=== PATIENT | male | born 1980 | race Caucasian/White ===

== ENCOUNTER 2018-04-10 01:15 | Observation (INO) ==
[2018-04-10] MEDS ORDERED: Acetaminophen 325 MG Tablet PO ONE (01:31)
[2018-04-10] MEDS ORDERED: Azithromycin 250 MG Tablet PO ONE (01:31)
--- NOTE | 2018-04-10 01:43 | ED ---
HPI General Chief complaint: Urogenital-Male Stated complaint: Medical Time Seen by Provider: 04/10/18 01:27 Source: patient Mode of arrival: ambulatory Limitations: no limitations History of Present Illness HPI narrative: 37-year-old male here for evaluation of penile discharge and gross hematuria with severe dysuria. Symptoms started yesterday. He was diaphoretic, tachycardic, and febrile in triage and was brought straight back to her room meeting sepsis criteria. Patient states that he had sexual intercourse 2 days ago, but is unsure if his sexual partner is having sex with other people. States his symptoms started yesterday. He is having lower abdominal pain as well which is moderate, described as burning, constant, dysuria is severe and constant. He denies history of abdominal surgeries. He has had a slight nonproductive cough for the last couple of days as well as several episodes of loose/brown diarrhea. No vomiting. He admits to using tobacco, alcohol, and methamphetamines by way of smoking it. Admits to IV drug use, however has not used IV drugs in over 1 year. He denies inserting anything into his urethra. Chart was reviewed and shows that the patient has been here in the past for suicide attempt by hanging/asphyxiation. Patient denies having suicidal or homicidal ideations today. Related Data Home Medications Medication Instructions Recorded Confirmed No Known Home Medications 04/10/18 04/10/18 Allergies Allergy/AdvReac Type Severity Reaction Status Date / Time No Known Allergies Allergy Verified 04/10/18 01:21 Review of Systems ROS: all other systems reviewed are negative [facility] Medical History Medical History Patient denies medical problems (Acute) Surgical History Surgical History No history of previous surgery (Acute) Social History Social History Substance History: Active Abuse Smoking Status: Current every day smoker Tobacco Type: Cigarettes How Often Do You Have a Drink Containing Alcohol: Never Recent Travel in [facility] within the Last 8 Weeks: No Recent Out of Country Travel within the Last 8 Weeks: No Substance Abuse Detail Methamphetamine: Substance Use Status: Active Immunization History Tetanus Immunization: >5 Years Exam Narrative Exam Narrative: GENERAL: Well-developed, well-nourished, shivering, flat affect , poor eye contact SKIN: Focused skin assessment warm/dry. HEAD: Atraumatic. Normocephalic. EYES: Pupils equal and round. No scleral icterus. No injection or drainage. ENT: No nasal bleeding or discharge. Mucous membranes pink and dry. NECK: Trachea midline. No JVD. No nuchal rigidity. CARDIOVASCULAR: Tachycardic, rate 95. No murmur. RESPIRATORY: No accessory muscle use. Clear to auscultation. Breath sounds equal bilaterally. GASTROINTESTINAL: Abdomen soft, nondistended. Mild suprapubic tenderness without peritoneal signs. Normal bowel sounds. Rest of abdomen is soft and nontender. No hernias. : Blood at the meatus with purulent discharge as well. The rest of his exam is within normal limits, without rashes. No testicular swelling, masses, or tenderness. MUSCULOSKELETAL: No obvious deformities. No clubbing. No cyanosis. No edema. NEUROLOGICAL: Awake and alert. No obvious cranial nerve deficits. Motor grossly within normal limits. Normal speech. PSYCHIATRIC: Flat affect, poor eye contact, depressed mood. Course Initial Documented Vital Signs Temperature 102.7 F H 04/10/18 01:18 Pulse Rate 103 H 04/10/18 01:18 Respiratory Rate 20 04/10/18 01:18 Blood Pressure 117/68 04/10/18 01:18 Pulse Oximetry 97 04/10/18 01:18 Last Documented Vital Signs Temperature 99.1 F 04/10/18 03:26 Pulse Rate 63 04/10/18 04:47 Respiratory Rate 16 04/10/18 04:47 Blood Pressure 114/66 04/10/18 04:47 Pulse Oximetry 100 04/10/18 04:47 Medical Decision Making MDM Narrative Medical decision making narrative: Vital signs reviewed and show tachycardia with fever. Sepsis protocol initiated, and the patient was empirically treated for STDs with Rocephin and azithromycin. CBC and CMP are essentially unremarkable aside from an AST of 38, ALT 126. Lactic acid is 0.9. TSH is slightly low, however free T4 is normal. Alcohol level is negative. Ammonia level is 30. CT abdomen and pelvis: CONCLUSION: 1. Negative CT Abdomen and Pelvis with contrast. Chest x-ray shows no acute disease. Are needed while in the emergency department. He was given 3 L of normal saline IV, and on CT he does have a moderate amount of urine in his bladder. He states he is refusing to urinate because it medina too much. He still has blood coming from the tip of his meatus, small amount. He is refusing straight cath. While talking to him he nods off, however is easily arousable. His pupils are 2 mm and equal and reactive. The patient has also refused to perform a flu test. He was given 0.4 mg of IV Narcan with only mild improvement in his mental status. CT head was therefore ordered because of his change in mental status while in the emergency department. Again there is no nuchal rigidity on exam. ABG on room air shows pH of 7.37, PCO2 41.8, PO2 85.5, essentially unremarkable. Influenza is negative. CT head read as negative noncontrast CT head. 5:00 AM: The patient finally provided a urine sample. Sample was grossly bloody. He provided approximately 200 cc of urine, and afterwards was writhing in the bed because of pain. After providing the sample, there was a moderate amount of venous bleeding from his urethra. He will be given 2% lidocaine jelly in his urethra as well as Pyridium. UA is positive for blood and is suggestive of UTI. Urine drug screen is positive for amphetamines and cannabinoids. Serum osmolality is 290 with an osmolar gap of 4. This is normal. Again the patient is very tired/somnolent, he does arouse to deep painful stimuli and is sometimes arousable to voice. He denies any toxic ingestions, however states he has been up for the last 3 days using methamphetamine. This could be the cause of his somnolence/altered mental status. At this point the patient is not arousable enough to be safely discharged home. I also believe that he would benefit from urology consultation/evaluation given gross hematuria with post void bleeding and severe dysuria to the point with the patient refuses to void. Patient has adamantly refused catheterization. He also denies inserting any foreign bodies into his urethra. His fever and tachycardia have improved with Tylenol and 4 L of normal saline IV. Case discussed with hospitalist Dr. Ni who will admit the patient to the hospitalist service. Medical Screen Exam Complete: Yes Emergency Medical Condition: Yes Differential Diagnosis Differential Diagnosis: Sepsis, STD, UTI, cystitis, nephrolithiasis, appendicitis, colitis, diverticulitis, polysubstance use, sympathomimetic toxidrome, anticholinergic toxidrome Lab Data Result diagrams: 04/10/18 01:35 04/10/18 01:35 Lab Results 04/10/18 04/10/18 04/10/18 Range/Units 01:35 01:35 01:35 WBC 10.8 (4.0-11.0) th/mm3 RBC 5.27 (4.50-5.90) mil/mm3 Hgb 14.5 (13.0-17.0) gm/dL Hct 44.3 (39.0-51.0) % MCV 84.2 (80.0-100.0) fL MCH 27.5 (27.0-34.0) pg MCHC 32.6 (32.0-36.0) % RDW 13.4 (11.6-17.2) % Plt Count 203 (150-450) th/mm3 MPV 8.4 (7.0-11.0) fL Neut % (Auto) 71.5 H (16.0-70.0) % Lymph % (Auto) 16.8 (9.0-44.0) % [place] % (Auto) 10.8 H (0.0-8.0) % Eos % (Auto) 0.3 (0.0-4.0) % Baso % (Auto) 0.6 (0.0-2.0) % Neut # (Auto) 7.7 (1.8-7.7) th/mm3 Lymph # (Auto) 1.8 (1.0-4.8) th/mm3 [place] # (Auto) 1.2 H (0.0-0.9) th/mm3 Eos # (Auto) 0.0 (0.0-0.4) th/mm3 Baso # (Auto) 0.1 (0.0-0.2) th/mm3 WBC Differential . Differential Comment Auto diff final PT 10.7 (9.8-11.6) sec INR 1.1 Ratio APTT 29.6 (23.4-31.7) sec Puncture Site Patient Temperature O2 Saturation (90-100) % ABG pH (7.380-7.420) ABG pCO2 (38-42) mmHg ABG pO2 (61-120) mmHg ABG HCO3 (22-26) mmol/L ABG O2 Content (12.0-20.0) Vol % ABG Base Excess (-2-2) mmol/L ABG Methemoglobin (0-2) % Krish Test Hemoglobin (12.0-16.0) G/DL Carboxyhemoglobin (0-4) % Inspired O2 % Critical Value Sodium 137 (136-145) meq/L Potassium 4.3 (3.5-5.1) meq/L Chloride 102 (98-107) meq/L Carbon Dioxide 28.5 (21.0-32.0) meq/L Anion Gap 7 (5-15) meq/L BUN 18 (7-18) mg/dL Creatinine 1.28 (0.60-1.30) mg/dL Estimated GFR 64 L (>89) mL/min Random Glucose 99 (74-106) mg/dL Osmolality (275-295) mosm/kg Lactic Acid (0.4-2.0) mmol/L Calcium 8.4 L (8.5-10.1) mg/dL Magnesium 2.0 (1.5-2.5) mg/dL Total Bilirubin 0.5 (0.2-1.0) mg/dL AST 38 H (15-37) U/L ALT 126 H (12-78) U/L Alkaline Phosphatase 70 (45-117) U/L Ammonia (11-32) mcmol/L Total Creatine Kinase 217 (39-308) U/L CK-MB (CK-2) Less than 1.0 (0.5-3.6) ng/mL Total Protein 8.0 (6.4-8.2) g/dL Albumin 3.7 (3.4-5.0) g/dL Lipase 121 (73-393) U/L TSH 0.098 L (0.358-3.740) uIU/mL Free T4 (0.76-1.46) ng/dL Urine Color (Yellw/Straw) Urine Clarity (Clear) Urine pH (5.0-8.5) Ur Specific [place] (1.002-1.035) Urine Protein (Neg-Trace) mg/dL Urine Glucose (UA) (Negative) mg/dL Urine Ketones (Negative) mg/dL Urine Occult Blood (Negative) Urine Nitrate (Negative) Urine Bilirubin (Negative) Urine Urobilinogen (Less than 2) mg/dL Ur Leukocyte Esterase (Negative) Urine RBC (0-3) /hpf Urine WBC (0-5) /hpf Urine Mucus (Occasional) /lpf Micro UA Comment Ur Microscopic Review Urine Culture Comments Urine Opiates Screen (Neg) Ur Barbiturates Screen (Neg) Ur Amphetamines Screen (Neg) U Benzodiazepines Scrn (Neg) Urine Cocaine Screen (Neg) U Cannabinoids Screen (Neg) Serum Alcohol Less than 3 (0-5) mg/dL 04/10/18 04/10/18 04/10/18 Range/Units 01:35 01:35 01:35 WBC (4.0-11.0) th/mm3 RBC (4.50-5.90) mil/mm3 Hgb (13.0-17.0) gm/dL Hct (39.0-51.0) % MCV (80.0-100.0) fL MCH (27.0-34.0) pg MCHC (32.0-36.0) % RDW (11.6-17.2) % Plt Count (150-450) th/mm3 MPV (7.0-11.0) fL Neut % (Auto) (16.0-70.0) % Lymph % (Auto) (9.0-44.0) % [place] % (Auto) (0.0-8.0) % Eos % (Auto) (0.0-4.0) % Baso % (Auto) (0.0-2.0) % Neut # (Auto) (1.8-7.7) th/mm3 Lymph # (Auto) (1.0-4.8) th/mm3 [place] # (Auto) (0.0-0.9) th/mm3 Eos # (Auto) (0.0-0.4) th/mm3 Baso # (Auto) (0.0-0.2) th/mm3 WBC Differential Differential Comment PT (9.8-11.6) sec INR Ratio APTT (23.4-31.7) sec Puncture Site Patient Temperature O2 Saturation (90-100) % ABG pH (7.380-7.420) ABG pCO2 (38-42) mmHg ABG pO2 (61-120) mmHg ABG HCO3 (22-26) mmol/L ABG O2 Content (12.0-20.0) Vol % ABG Base Excess (-2-2) mmol/L ABG Methemoglobin (0-2) % Krish Test Hemoglobin (12.0-16.0) G/DL Carboxyhemoglobin (0-4) % Inspired O2 % Critical Value Sodium (136-145) meq/L Potassium (3.5-5.1) meq/L Chloride (98-107) meq/L Carbon Dioxide (21.0-32.0) meq/L Anion Gap (5-15) meq/L BUN (7-18) mg/dL Creatinine (0.60-1.30) mg/dL Estimated GFR (>89) mL/min Random Glucose (74-106) mg/dL Osmolality 290 (275-295) mosm/kg Lactic Acid 0.9 (0.4-2.0) mmol/L Calcium (8.5-10.1) mg/dL Magnesium (1.5-2.5) mg/dL Total Bilirubin (0.2-1.0) mg/dL AST (15-37) U/L ALT (12-78) U/L Alkaline Phosphatase (45-117) U/L Ammonia (11-32) mcmol/L Total Creatine Kinase (39-308) U/L CK-MB (CK-2) (0.5-3.6) ng/mL Total Protein (6.4-8.2) g/dL Albumin (3.4-5.0) g/dL Lipase (73-393) U/L TSH (0.358-3.740) uIU/mL Free T4 1.18 (0.76-1.46) ng/dL Urine Color (Yellw/Straw) Urine Clarity (Clear) Urine pH (5.0-8.5) Ur Specific [place] (1.002-1.035) Urine Protein (Neg-Trace) mg/dL Urine Glucose (UA) (Negative) mg/dL Urine Ketones (Negative) mg/dL Urine Occult Blood (Negative) Urine Nitrate (Negative) Urine Bilirubin (Negative) Urine Urobilinogen (Less than 2) mg/dL Ur Leukocyte Esterase (Negative) Urine RBC (0-3) /hpf Urine WBC (0-5) /hpf Urine Mucus (Occasional) /lpf Micro UA Comment Ur Microscopic Review Urine Culture Comments Urine Opiates Screen (Neg) Ur Barbiturates Screen (Neg) Ur Amphetamines Screen (Neg) U Benzodiazepines Scrn (Neg) Urine Cocaine Screen (Neg) U Cannabinoids Screen (Neg) Serum Alcohol (0-5) mg/dL 12/06/18 12/06/18 12/06/18 Range/Units 02:46 04:26 05:05 WBC (4.0-11.0) th/mm3 RBC (4.50-5.90) mil/mm3 Hgb (13.0-17.0) gm/dL Hct (39.0-51.0) % MCV (80.0-100.0) fL MCH (27.0-34.0) pg MCHC (32.0-36.0) % RDW (11.6-17.2) % Plt Count (150-450) th/mm3 MPV (7.0-11.0) fL Neut % (Auto) (16.0-70.0) % Lymph % (Auto) (9.0-44.0) % [place] % (Auto) (0.0-8.0) % Eos % (Auto) (0.0-4.0) % Baso % (Auto) (0.0-2.0) % Neut # (Auto) (1.8-7.7) th/mm3 Lymph # (Auto) (1.0-4.8) th/mm3 [place] # (Auto) (0.0-0.9) th/mm3 Eos # (Auto) (0.0-0.4) th/mm3 Baso # (Auto) (0.0-0.2) th/mm3 WBC Differential Differential Comment PT (9.8-11.6) sec INR Ratio APTT (23.4-31.7) sec Puncture Site Right radial Patient Temperature 98.6 O2 Saturation 95 (90-100) % ABG pH 7.38 (7.380-7.420) ABG pCO2 42 (38-42) mmHg ABG pO2 86 (61-120) mmHg ABG HCO3 24 (22-26) mmol/L ABG O2 Content 16.5 (12.0-20.0) Vol % ABG Base Excess -0.6 (-2-2) mmol/L ABG Methemoglobin 0.6 (0-2) % Krish Test Present Hemoglobin 12.4 (12.0-16.0) G/DL Carboxyhemoglobin 1.2 (0-4) % Inspired O2 21 % Critical Value No Sodium (136-145) meq/L Potassium (3.5-5.1) meq/L Chloride (98-107) meq/L Carbon Dioxide (21.0-32.0) meq/L Anion Gap (5-15) meq/L BUN (7-18) mg/dL Creatinine (0.60-1.30) mg/dL Estimated GFR (>89) mL/min Random Glucose (74-106) mg/dL Osmolality (275-295) mosm/kg Lactic Acid (0.4-2.0) mmol/L Calcium (8.5-10.1) mg/dL Magnesium (1.5-2.5) mg/dL Total Bilirubin (0.2-1.0) mg/dL AST (15-37) U/L ALT (12-78) U/L Alkaline Phosphatase (45-117) U/L Ammonia 30 (11-32) mcmol/L Total Creatine Kinase (39-308) U/L CK-MB (CK-2) (0.5-3.6) ng/mL Total Protein (6.4-8.2) g/dL Albumin (3.4-5.0) g/dL Lipase (73-393) U/L TSH (0.358-3.740) uIU/mL Free T4 (0.76-1.46) ng/dL Urine Color Red (Yellw/Straw) Urine Clarity Hazy H (Clear) Urine pH 5.0 (5.0-8.5) Ur Specific [place] Greater than 1.060 H (1.002-1.035) Urine Protein 100 H (Neg-Trace) mg/dL Urine Glucose (UA) Negative (Negative) mg/dL Urine Ketones Trace H (Negative) mg/dL Urine Occult Blood Large H (Negative) Urine Nitrate Negative (Negative) Urine Bilirubin Negative (Negative) Urine Urobilinogen Less than 2 (Less than 2) mg/dL Ur Leukocyte Esterase Small H (Negative) Urine RBC (0-3) /hpf Urine WBC 35 H (0-5) /hpf Urine Mucus Few H (Occasional) /lpf Micro UA Comment Culture indicated Ur Microscopic Review Not Reportable Urine Culture Comments Culture indicated Urine Opiates Screen (Neg) Ur Barbiturates Screen (Neg) Ur Amphetamines Screen (Neg) U Benzodiazepines Scrn (Neg) Urine Cocaine Screen (Neg) U Cannabinoids Screen (Neg) Serum Alcohol (0-5) mg/dL 04/10/18 Range/Units 05:05 WBC (4.0-11.0) th/mm3 RBC (4.50-5.90) mil/mm3 Hgb (13.0-17.0) gm/dL Hct (39.0-51.0) % MCV (80.0-100.0) fL MCH (27.0-34.0) pg MCHC (32.0-36.0) % RDW (11.6-17.2) % Plt Count (150-450) th/mm3 MPV (7.0-11.0) fL Neut % (Auto) (16.0-70.0) % Lymph % (Auto) (9.0-44.0) % [place] % (Auto) (0.0-8.0) % Eos % (Auto) (0.0-4.0) % Baso % (Auto) (0.0-2.0) % Neut # (Auto) (1.8-7.7) th/mm3 Lymph # (Auto) (1.0-4.8) th/mm3 [place] # (Auto) (0.0-0.9) th/mm3 Eos # (Auto) (0.0-0.4) th/mm3 Baso # (Auto) (0.0-0.2) th/mm3 WBC Differential Differential Comment PT (9.8-11.6) sec INR Ratio APTT (23.4-31.7) sec Puncture Site Patient Temperature O2 Saturation (90-100) % ABG pH (7.380-7.420) ABG pCO2 (38-42) mmHg ABG pO2 (61-120) mmHg ABG HCO3 (22-26) mmol/L ABG O2 Content (12.0-20.0) Vol % ABG Base Excess (-2-2) mmol/L ABG Methemoglobin (0-2) % Krish Test Hemoglobin (12.0-16.0) G/DL Carboxyhemoglobin (0-4) % Inspired O2 % Critical Value Sodium (136-145) meq/L Potassium (3.5-5.1) meq/L Chloride (98-107) meq/L Carbon Dioxide (21.0-32.0) meq/L Anion Gap (5-15) meq/L BUN (7-18) mg/dL Creatinine (0.60-1.30) mg/dL Estimated GFR (>89) mL/min Random Glucose (74-106) mg/dL Osmolality (275-295) mosm/kg Lactic Acid (0.4-2.0) mmol/L Calcium (8.5-10.1) mg/dL Magnesium (1.5-2.5) mg/dL Total Bilirubin (0.2-1.0) mg/dL AST (15-37) U/L ALT (12-78) U/L Alkaline Phosphatase (45-117) U/L Ammonia (11-32) mcmol/L Total Creatine Kinase (39-308) U/L CK-MB (CK-2) (0.5-3.6) ng/mL Total Protein (6.4-8.2) g/dL Albumin (3.4-5.0) g/dL Lipase (73-393) U/L TSH (0.358-3.740) uIU/mL Free T4 (0.76-1.46) ng/dL Urine Color (Yellw/Straw) Urine Clarity (Clear) Urine pH (5.0-8.5) Ur Specific [place] (1.002-1.035) Urine Protein (Neg-Trace) mg/dL Urine Glucose (UA) (Negative) mg/dL Urine Ketones (Negative) mg/dL Urine Occult Blood (Negative) Urine Nitrate (Negative) Urine Bilirubin (Negative) Urine Urobilinogen (Less than 2) mg/dL Ur Leukocyte Esterase (Negative) Urine RBC (0-3) /hpf Urine WBC (0-5) /hpf Urine Mucus (Occasional) /lpf Micro UA Comment Ur Microscopic Review Urine Culture Comments Urine Opiates Screen Neg (Neg) Ur Barbiturates Screen Neg (Neg) Ur Amphetamines Screen Pos H (Neg) U Benzodiazepines Scrn Neg (Neg) Urine Cocaine Screen Neg (Neg) U Cannabinoids Screen Pos H (Neg) Serum Alcohol (0-5) mg/dL Imaging Data Radiologist's impression: Abdomen/Pelvis CT 04/10/18 01:31 CONCLUSION: 1. Negative CT Abdomen and Pelvis with contrast. Chest X-Ray 04/10/18 01:31 CONCLUSION: Negative examination. Head CT 04/10/18 03:37 CONCLUSION: 1. Negative CT Head non contrast. . Discharge Plan Discharge Disposition Patient Disposition: ED Admit(ED Internal Use Only) Discharge Condition Condition: Stable Discharge Order Discharge Orders: ED Use Only Admit Order (Routine); Ordered 04/10/18 Ordered By: Kane Muir Discharge Details Diagnosis: Altered mental status, Urethritis, Gross hematuria, Polysubstance abuse Physicians Team ED Provider: Kane Muir Primary Care Provider: Primary Care Indigo Richardson Attending Provider: Suzanne Ni Status ED Status: Admitted Observation Patient
[2018-04-10] MEDS ORDERED: Sod Chloride 0.9% Inj 800 ML IV.SIG SCH (01:45)
[2018-04-10] MEDS ORDERED: Sod Chloride 0.9% Inj 1,000 ML IV.SIG SCH ×2 (01:45→03:45)
[2018-04-10 01:50] LABS: Baso # (Auto) 0.1 th/mm3 (0.0-0.2); Baso % (Auto) 0.6 % (0.0-2.0); Eos % (Auto) 0.3 % (0.0-4.0); Hematocrit 44.3 % (39.0-51.0); Hemoglobin 14.5 gm/dL (13.0-17.0); Lymph # (Auto) 1.8 th/mm3 (1.0-4.8); Lymph % (Auto) 16.8 % (9.0-44.0); Mean Corpuscular HGB Conc 32.6 % (32.0-36.0); Mean Corpuscular Hemoglobin 27.5 pg (27.0-34.0); Mean Corpuscular Volume 84.2 fL (80.0-100.0); Mean Platelet Volume 8.4 fL (7.0-11.0); Mono # (Auto) 1.2 th/mm3 (0.0-0.9); Mono % (Auto) 10.8 % (0.0-8.0); Neut # (Auto) 7.7 th/mm3 (1.8-7.7); Neut % (Auto) 71.5 % (16.0-70.0); Platelet Count 203 th/mm3 (150-450); Red Blood Count 5.27 mil/mm3 (4.50-5.90); Red Cell Distribution Width 13.4 % (11.6-17.2); White Blood Count 10.8 th/mm3 (4.0-11.0)
[2018-04-10 02:02] LABS: Activated Partial Thrombo Time 29.6 sec (23.4-31.7); INR 1.1 Ratio; Prothrombin Time 10.7 sec (9.8-11.6)
--- NOTE | 2018-04-10 02:11 | XR ---
EXAM DATE: 04/10/2018 1:41 AM EST AGE/SEX: 37 years / Male INDICATIONS: Fever starting today CLINICAL DATA: This is the patient's initial encounter. Patient reports that signs and symptoms have been present for 1 day and indicates a pain score of 0/10. MEDICAL/SURGICAL HISTORY: None. None. COMPARISON: [facility], CHEST PA & LAT, 04/15/2017. . FINDINGS: A single AP view of the chest demonstrates the lungs to be symmetrically aerated without evidence of mass, infiltrate or effusion. The cardiomediastinal contours are unremarkable. Osseous structures a re intact. CONCLUSION: Negative examination. Electronically signed by: Rodrigo Fenton MD 04/10/2018 2:10 AM EST
[2018-04-10 02:14] LABS: Alanine Aminotransferase 126 U/L (12-78); Albumin 3.7 g/dL (3.4-5.0); Anion Gap 7 meq/L (5-15); Aspartate Aminotransferase 38 U/L (15-37); Blood Urea Nitrogen 18 mg/dL (7-18); Calcium 8.4 mg/dL (8.5-10.1); Carbon Dioxide 28.5 meq/L (21.0-32.0); Chloride 102 meq/L (98-107); Glomerular Filtration Rate 64 mL/min (>89); Glucose,Random 99 mg/dL (74-106); Lipase 121 U/L (73-393); Potassium 4.3 meq/L (3.5-5.1); Sodium 137 meq/L (136-145)
[2018-04-10 02:23] LABS: Alkaline Phosphatase 70 U/L (45-117); Creatine Kinase 217 U/L (39-308); Thyroid Stimulating Hormone 0.098 uIU/mL (0.358-3.740)
--- NOTE | 2018-04-10 03:11 | CT ---
EXAM DATE: 04/10/2018 3:05 AM EST AGE/SEX: 37 years / Male INDICATIONS: Lower abdomen pain, fever, hematuria with dysuria. CLINICAL DATA: This is the patient's initial encounter. Patient reports that signs and symptoms have been present for 2 days and indicates a pain score of 10/10. MEDICAL/SURGICAL HISTORY: None. None. ORAL CONTRAST: No oral contrast ingested. RADIATION DOSE: 6.59 CTDI (mGy) COMPARISON: No prior exams available for comparison. TECHNIQUE: Multiple contiguous axial images were obtained through the abdomen and pelvis following b olus infusion of 98 ml Omnipaque 350 (iohexol) nonionic water-soluble contrast as a single exam dos e. No oral contrast ingested. Using automated exposure control and adjustment of the mA and/or kV ac cording to patient size, radiation dose was kept as low as reasonably achievable to obtain optimal di agnostic quality images. DICOM format image data is available electronically for review and comparis on. FINDINGS: Lower Lungs: The visualized lower lungs are clear. Liver: The liver has a homogeneous density without space-occupying lesion. There is no dilation of th e biliary tree. Gallbladder is decompressed. Spleen: Homogeneous density without enlargement. Pancreas: Unremarkable without mass or calcification. Kidneys: Normal in size and shape. No evidence of mass or hydronephrosis. Adrenal Glands: Unremarkable. Aorta: The aorta and proximal iliac vessels are grossly unremarkable without aneurysmal dilation. Bowel/Mesentery: The bowel loops are grossly unremarkable. The cecum and sigmoid colon have a normal configuration. Abdominal Wall: Intact. Retroperitoneum: No evidence of adenopathy in the retrocrural, para-aortic, or deep pelvic regions. Bladder: Contours are smooth. Reproductive Organs: No abnormal masses or calcifications seen. Inguinal: The inguinal region is unremarkable without evidence of adenopathy. Bony Structures: Unremarkable. CONCLUSION: 1. Negative CT Abdomen and Pelvis with contrast. Electronically signed by: Rodrigo Fenton MD 04/10/2018 3:10 AM EST
[2018-04-10] MEDS ORDERED: Naloxone Inj 0.4 MG/ML Vial IV.PUSH ONE (03:26)
[2018-04-10 04:40] LABS: ABG Base Excess -0.6 mmol/L (-2-2); ABG PCO2 42 mmHg (38-42); ABG PO2 86 mmHg (61-120)
[2018-04-10] MEDS ORDERED: Lidocaine 2% Jelly 5 ML Syringe TOPICAL ONE (05:01)
--- NOTE | 2018-04-10 05:11 | CT ---
EXAM DATE: 04/10/2018 4:42 AM EST AGE/SEX: 37 years / Male INDICATIONS: Altered mental status. CLINICAL DATA: This is the patient's initial encounter. Patient reports that signs and symptoms have been present for 1 day and indicates a pain score of 0/10. MEDICAL/SURGICAL HISTORY: None. None. RADIATION DOSE: 56.35 CTDI (mGy) COMPARISON: No prior exams available for comparison. TECHNIQUE: CT of the head without contrast. Using automated exposure control and adjustment of the mA and/or kV according to patient size, radiation dose was kept as low as reasonably achievable to ob tain optimal diagnostic quality images. DICOM format image data is available electronically for revi ew and comparison. FINDINGS: Cerebrum: The ventricles are normal for age. No evidence of midline shift, mass lesion, hemorrhage or acute infarction. No extraaxial fluid collections are seen. Posterior Fossa: The cerebellum and brainstem are intact. The 4th ventricle is midline. The cerebe llopontine angle is unremarkable. Extracranial: The visualized portion of the orbits is intact. Skull: The calvaria is intact. No evidence of skull fracture. CONCLUSION: 1. Negative CT Head non contrast. . Electronically signed by: Rodrigo Fenton MD 04/10/2018 5:09 AM EST
[2018-04-10 05:22] LABS: Bilirubin,Urine Negative (Negative); Clarity,Urine Hazy (Clear); Color,Urine Red (Yellw/Straw); Glucose,Urine (UA) Negative (Negative); Leukocyte Esterase,Urine Small (Negative); Mucus,Urine Few /lpf (Occasional); Nitrite,Urine Negative (Negative)
[2018-04-10 05:26] LABS: Amphetamine Screen,Urine Pos (Neg); Barbiturate Screen,Urine Neg (Neg); Cannabinoid Screen,Urine Pos (Neg); Cocaine Screen,Urine Neg (Neg)
[2018-04-10 05:27] LABS: Opiate Screen,Urine Neg (Neg)
[2018-04-10] MEDS ORDERED: Naloxone Inj 0.4 MG/ML Vial IV.PUSH PRN (05:41)
[2018-04-10] MEDS ORDERED: Acetaminophen 325 MG Tablet PO PRN (05:41)
[2018-04-10] MEDS ORDERED: Bisacodyl 10 MG Supp RECTAL PRN (05:41)
[2018-04-10] MEDS: Sod Chloride 0.9% Inj 1,000 ML IV.CONT SCH ×2 (06:59→18:35)
[2018-04-10] MEDS ORDERED: Senna/Docusate Sodium 8.6/50 MG Tablet PO SCH (09:00)
--- NOTE | 2018-04-10 12:58 | P.CONURO ---
History of Present Illness Service: Consult date: 04/10/18 Requesting Physician: Terri Baca Reason for Consult: Painful urination Primary Care Provider: No Primary Care Physician History of Present Illness: 37-year-old gentleman who presented to the emergency room complaining of painful urination and penile discharge. Patient also complained of lower abdominal pain related to holding off on urination due to the dysuria. Patient admitted to unprotected sex several days ago. Preliminary evaluation demonstrated bloody discharge from the meatus. STD protocol was implemented and the patient was started on antibiotic therapy and prescribed Pyridium as well as analgesic medication. At the time of consultation the patient reported that the symptoms had improved. He appeared somewhat somnolent and was not a very good historian. Review of Systems All other systems reviewed negative except as stated in HPI [facility] - History History Provided By: Patient - Medical History Medical History: Medical History (Last Updated 04/10/18 @ 01:20 by Bruno Mehta RN) Patient denies medical problems - Surgical History Surgical History: Surgical History (Last Updated 04/10/18 @ 01:20 by Bruno Mehta RN) No history of previous surgery - Tobacco History Tobacco Use In Past 30 Days: Yes Smoking Status: Current every day smoker Tobacco Type: Cigarettes - Alcohol History How Often Do You Have a Drink Containing Alcohol: Never - Substance Use History 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 - Travel History Recent Travel in the [place] Within the Last 8 Weeks: No Recent Travel Out of the Country Within the Last 8 Weeks: No - Immunization History Tetanus Immunization: >5 Years Medications and Allergies Active Medications: Active Medications Acetaminophen (Tylenol) 650 mg PO Q4H PRN PRN Reason: headache/fever/pain1-4 Hydrocodone Bitart/Acetaminophen ([place] 5/325) 1 tab PO Q6H PRN PRN Reason: pain scale 5 to 10 Al Hydroxide/Mg Hydroxide (Milk Of Magnesia Liq) 30 ml PO Q12H PRN PRN Reason: Mild Constipation Bisacodyl (Dulcolax Supp) 10 mg RECTAL DAILY PRN PRN Reason: SEVERE CONSITIPATION Sodium Chloride (Ns Inj) 1,000 mls @ 0 mls/hr IV.SIG .Q0M [facility] Last Infusion: 04/10/18 03:20 Dose: Infused Sodium Chloride (Ns Inj) 800 mls @ 0 mls/hr IV.SIG .Q0M [facility] Last Infusion: 04/10/18 03:35 Dose: Infused Sodium Chloride (Ns Inj) 1,000 mls @ 100 mls/hr IV.CONT .Q10H [facility] Last Admin: 04/10/18 06:59 Dose: 100 mls/hr Lactulose (Lactulose Liq) 30 ml PO DAILY PRN PRN Reason: SEVERE CONSITIPATION Naloxone HCl (Narcan Inj) 0.4 mg IV.PUSH UNSCH PRN PRN Reason: SEE LABEL COMMENTS Ondansetron HCl (Zofran Inj) 4 mg IV.PUSH Q6H PRN PRN Reason: NAUSEA OR VOMITING Senna/Docusate Sodium (Pattie-Colace) 1 tab PO BID [facility] Sennosides (Senokot) 17.2 mg PO Q12H PRN PRN Reason: Moderate Constipation Sodium Chloride (Ns Flush) 2 ml IV.FLUSH PRN PRN PRN Reason: FLUSH AFTER USING IV ACCESS Sodium Chloride (Ns Flush) 2 ml IV.FLUSH BID [facility] Allergies Allergy/AdvReac Type Severity Reaction Status Date / Time No Known Allergies Allergy Verified 04/10/18 01:21 Home Medications Medication Instructions Recorded Confirmed Type No Known Home Medications 04/10/18 04/10/18 History Physical Exam Vital Signs - 24 hr 04/10/18 01:18 04/10/18 01:28 04/10/18 01:31 Temperature 102.7 F H Pulse Rate 103 H 95 H Respiratory Rate 20 Blood Pressure 117/68 153/77 H Pulse Oximetry 97 100 100 04/10/18 03:26 04/10/18 04:47 04/10/18 07:10 Temperature 99.1 F Pulse Rate 82 63 Respiratory Rate 16 16 Blood Pressure 114/66 Pulse Oximetry 97 100 04/10/18 07:14 04/10/18 08:00 04/10/18 12:00 Temperature 98.8 F 98.9 F Pulse Rate 64 80 Respiratory Rate 16 16 16 Blood Pressure 137/68 137/74 Pulse Oximetry Physical Exam: GENERAL: This is a well-nourished, well-developed patient, in no apparent distress. SKIN: No rashes, ecchymoses or lesions. Cool and dry. HEAD: Atraumatic. Normocephalic. No temporal or scalp tenderness. EYES: Pupils equal round and reactive. Extraocular motions intact. No scleral icterus. No injection or drainage. ENT: Nose without bleeding, purulent drainage or septal hematoma. Throat without erythema, tonsillar hypertrophy or exudate. Uvula midline. Airway patent. NECK: Trachea midline. No JVD or lymphadenopathy. Supple, nontender, no meningeal signs. CARDIOVASCULAR: Regular rate and rhythm without murmurs, gallops, or rubs. RESPIRATORY: Clear to auscultation. Breath sounds equal bilaterally. No wheezes , rales, or rhonchi. GASTROINTESTINAL: Abdomen soft, non-tender, nondistended. No hepato-splenomegaly , or palpable masses. No guarding. GENITOURINARY: Bladder not distended, no ongoing drainage from the meatus noted , testes bilaterally descended and nontender MUSCULOSKELETAL: Extremities without clubbing, cyanosis, or edema. No joint tenderness, effusion, or edema noted. No calf tenderness. Negative Homans sign bilaterally. NEUROLOGICAL: Awake and alert. Cranial nerves II through XII intact. Motor and sensory grossly within normal limits. Five out of 5 muscle strength in all muscle groups. Normal speech. Laboratory Results - last 24 hr 04/10/18 04/10/18 04/10/18 01:35 01:35 01:35 WBC 10.8 RBC 5.27 Hgb 14.5 Hct 44.3 MCV 84.2 MCH 27.5 MCHC 32.6 RDW 13.4 Plt Count 203 MPV 8.4 Neut % (Auto) 71.5 H Lymph % (Auto) 16.8 Dolores % (Auto) 10.8 H Eos % (Auto) 0.3 Baso % (Auto) 0.6 Neut # (Auto) 7.7 Lymph # (Auto) 1.8 Dolores # (Auto) 1.2 H Eos # (Auto) 0.0 Baso # (Auto) 0.1 WBC Differential . Differential Comment Auto diff final PT 10.7 INR 1.1 APTT 29.6 Puncture Site Patient Temperature O2 Saturation ABG pH ABG pCO2 ABG pO2 ABG HCO3 ABG O2 Content ABG Base Excess ABG Methemoglobin Krish Test Hemoglobin Carboxyhemoglobin Inspired O2 Critical Value Sodium 137 Potassium 4.3 Chloride 102 Carbon Dioxide 28.5 Anion Gap 7 BUN 18 Creatinine 1.28 Estimated GFR 64 L Random Glucose 99 Osmolality Lactic Acid Calcium 8.4 L Magnesium 2.0 Total Bilirubin 0.5 AST 38 H ALT 126 H Alkaline Phosphatase 70 Ammonia Total Creatine Kinase 217 CK-MB (CK-2) Less than 1.0 Total Protein 8.0 Albumin 3.7 Lipase 121 TSH 0.098 L Free T4 Urine Color Urine Clarity Urine pH Ur Specific [place] Urine Protein Urine Glucose (UA) Urine Ketones Urine Occult Blood Urine Nitrate Urine Bilirubin Urine Urobilinogen Ur Leukocyte Esterase Urine RBC Urine WBC Urine Mucus Micro UA Comment Ur Microscopic Review Urine Culture Comments Urine Opiates Screen Ur Barbiturates Screen Ur Amphetamines Screen U Benzodiazepines Scrn Urine Cocaine Screen U Cannabinoids Screen Serum Alcohol Less than 3 Chlam trachomat DNA PCR N.gonorrhoeae DNA (PCR) 04/10/18 04/10/18 04/10/18 01:35 01:35 01:35 WBC RBC Hgb Hct MCV MCH MCHC RDW Plt Count MPV Neut % (Auto) Lymph % (Auto) Dolores % (Auto) Eos % (Auto) Baso % (Auto) Neut # (Auto) Lymph # (Auto) Dolores # (Auto) Eos # (Auto) Baso # (Auto) WBC Differential Differential Comment PT INR APTT Puncture Site Patient Temperature O2 Saturation ABG pH ABG pCO2 ABG pO2 ABG HCO3 ABG O2 Content ABG Base Excess ABG Methemoglobin Krish Test Hemoglobin Carboxyhemoglobin Inspired O2 Critical Value Sodium Potassium Chloride Carbon Dioxide Anion Gap BUN Creatinine Estimated GFR Random Glucose Osmolality 290 Lactic Acid 0.9 Calcium Magnesium Total Bilirubin AST ALT Alkaline Phosphatase Ammonia Total Creatine Kinase CK-MB (CK-2) Total Protein Albumin Lipase TSH Free T4 1.18 Urine Color Urine Clarity Urine pH Ur Specific [place] Urine Protein Urine Glucose (UA) Urine Ketones Urine Occult Blood Urine Nitrate Urine Bilirubin Urine Urobilinogen Ur Leukocyte Esterase Urine RBC Urine WBC Urine Mucus Micro UA Comment Ur Microscopic Review Urine Culture Comments Urine Opiates Screen Ur Barbiturates Screen Ur Amphetamines Screen U Benzodiazepines Scrn Urine Cocaine Screen U Cannabinoids Screen Serum Alcohol Chlam trachomat DNA PCR N.gonorrhoeae DNA (PCR) 04/10/18 04/10/18 04/10/18 02:46 04:26 05:05 WBC RBC Hgb Hct MCV MCH MCHC RDW Plt Count MPV Neut % (Auto) Lymph % (Auto) Dolores % (Auto) Eos % (Auto) Baso % (Auto) Neut # (Auto) Lymph # (Auto) Dolores # (Auto) Eos # (Auto) Baso # (Auto) WBC Differential Differential Comment PT INR APTT Puncture Site Right radial Patient Temperature 98.6 O2 Saturation 95 ABG pH 7.38 ABG pCO2 42 ABG pO2 86 ABG HCO3 24 ABG O2 Content 16.5 ABG Base Excess -0.6 ABG Methemoglobin 0.6 Krish Test Present Hemoglobin 12.4 Carboxyhemoglobin 1.2 Inspired O2 21 Critical Value No Sodium Potassium Chloride Carbon Dioxide Anion Gap BUN Creatinine Estimated GFR Random Glucose Osmolality Lactic Acid Calcium Magnesium Total Bilirubin AST ALT Alkaline Phosphatase Ammonia 30 Total Creatine Kinase CK-MB (CK-2) Total Protein Albumin Lipase TSH Free T4 Urine Color Red Urine Clarity Hazy H Urine pH 5.0 Ur Specific [place] Greater than 1.060 H Urine Protein 100 H Urine Glucose (UA) Negative Urine Ketones Trace H Urine Occult Blood Large H Urine Nitrate Negative Urine Bilirubin Negative Urine Urobilinogen Less than 2 Ur Leukocyte Esterase Small H Urine RBC Urine WBC 35 H Urine Mucus Few H Micro UA Comment Culture indicated Ur Microscopic Review Not Reportable Urine Culture Comments Culture indicated Urine Opiates Screen Ur Barbiturates Screen Ur Amphetamines Screen U Benzodiazepines Scrn Urine Cocaine Screen U Cannabinoids Screen Serum Alcohol Chlam trachomat DNA PCR N.gonorrhoeae DNA (PCR) 04/10/18 04/10/18 05:05 05:05 WBC RBC Hgb Hct MCV MCH MCHC RDW Plt Count MPV Neut % (Auto) Lymph % (Auto) Dolores % (Auto) Eos % (Auto) Baso % (Auto) Neut # (Auto) Lymph # (Auto) Dolores # (Auto) Eos # (Auto) Baso # (Auto) WBC Differential Differential Comment PT INR APTT Puncture Site Patient Temperature O2 Saturation ABG pH ABG pCO2 ABG pO2 ABG HCO3 ABG O2 Content ABG Base Excess ABG Methemoglobin Krish Test Hemoglobin Carboxyhemoglobin Inspired O2 Critical Value Sodium Potassium Chloride Carbon Dioxide Anion Gap BUN Creatinine Estimated GFR Random Glucose Osmolality Lactic Acid Calcium Magnesium Total Bilirubin AST ALT Alkaline Phosphatase Ammonia Total Creatine Kinase CK-MB (CK-2) Total Protein Albumin Lipase TSH Free T4 Urine Color Urine Clarity Urine pH Ur Specific [place] Urine Protein Urine Glucose (UA) Urine Ketones Urine Occult Blood Urine Nitrate Urine Bilirubin Urine Urobilinogen Ur Leukocyte Esterase Urine RBC Urine WBC Urine Mucus Micro UA Comment Ur Microscopic Review Urine Culture Comments Urine Opiates Screen Neg Ur Barbiturates Screen Neg Ur Amphetamines Screen Pos H U Benzodiazepines Scrn Neg Urine Cocaine Screen Neg U Cannabinoids Screen Pos H Serum Alcohol Chlam trachomat DNA PCR Not detected N.gonorrhoeae DNA (PCR) Detected A Microbiology 04/10/18 04:10 Influenza Types A,B Antigen - Final Nasal Wash Negative for FLU A and B antigen Infection due to influenza A or B cannot be ruled out since the antigen present in the sample may be below the detection limit of the test. Result Diagrams: 04/10/18 01:35 04/10/18 01:35 Imaging: ITS Impressions Abdomen/Pelvis CT 04/10/18 01:31 CONCLUSION: 1. Negative CT Abdomen and Pelvis with contrast. Chest X-Ray 04/10/18 01:31 CONCLUSION: Negative examination. Head CT 04/10/18 03:37 CONCLUSION: 1. Negative CT Head non contrast. . Assessment and Plan - Assessment (1) Urethritis Code(s): N34.2 - Other urethritis Status: Acute - Plan Urologic impression: Acute urethritis Recommendations: 1. Switch over to oral analgesics 2. Discharge home when clinically improved and pain managed with oral meds 3. Doxycycline 100 mg by mouth twice daily times 2 weeks 4. Cipro 500 mg by mouth twice daily times 7 days 5. Continue with Pyridium 200 mg by mouth 3 times daily as needed dysuria 6. Please have patient contact my office to arrange a follow-up visit in approximately 2-3 weeks time [phone].
--- NOTE | 2018-04-10 15:22 | ECHRPT ---
Indication: SEPSSI POSS ENDOCARDITIS CONCLUSIONS Normal left ventricular size. Wall thickness is normal. The left ventricular systolic function is normal with an estimated ejection fraction in the range of 55-60%. Trace mitral valve regurgitation. The estimated pulmonary arterial pressure is 59 mmHg. There is mild to moderate tricuspid valve regurgitation. BP: / HR: Rhythm: MEASUREMENTS (Male / Female) Normal Values Technical Quality: 2D ECHO LV Diastolic Diameter PLAX 4.9 cm 4.2 - 5.9 / 3.9 - 5.3 cm LV Systolic Diameter PLAX 3.4 cm IVS Diastolic Thickness 0.9 cm 0.6 - 1.0 / 0.6 - 0.9 cm LVPW Diastolic Thickness 1.1 cm 0.6 - 1.0 / 0.6 - 0.9 cm LV Relative Wall Thickness 0.4 RV Internal Dim ED PLAX 3.1 cm LVOT Diameter 2.1 cm Aortic Root Diameter 2.3 cm LA Systolic Diameter LX 2.9 cm 3.0 - 4.0 / 2.7 - 3.8 cm DOPPLER AV Peak Velocity 125.0 cm/s AV Peak Gradient 6.3 mmHg LVOT Peak Velocity 87.9 cm/s LVOT Peak Gradient 3.1 mmHg AV Area Cont Eq pk 2.4 cm Mitral E Point Velocity 73.5 cm/s Mitral A Point Velocity 55.3 cm/s Mitral E to A Ratio 1.3 TR Peak Velocity 349.0 cm/s TR Peak Gradient 48.7 mmHg Right Atrial Pressure 10.0 mmHg Pulmonary Artery Systolic Pressu 58.7 mmHg Right Ventricular Systolic Press 58.7 mmHg PV Peak Velocity 142.0 cm/s PV Peak Gradient 8.1 mmHg FINDINGS LEFT VENTRICLE Normal left ventricular size. Wall thickness is normal. The left ventricular systolic function is normal with an estimated ejection fraction in the range of 55-60%. RIGHT VENTRICLE Normal right ventricular size and systolic function. LEFT ATRIUM The left atrial size is normal. RIGHT ATRIUM The right atrial size is normal. ATRIAL SEPTUM Normal atrial septal thickness without atrial level shunting by limited color doppler interrogation. AORTA The aortic root and proximal ascending aorta are normal in size on limited imaging. MITRAL VALVE Trace mitral valve regurgitation. AORTIC VALVE Trileaflet aortic valve. No aortic valve stenosis or regurgitation. TRICUSPID VALVE The estimated pulmonary arterial pressure is 59 mmHg. There is mild to moderate tricuspid valve regurgitation. PULMONARY VALVE No pulmonary valve regurgitation or stenosis. VESSELS The inferior vena cava is normal in size. PERICARDIUM No pericardial effusion. Tacho Rosario MD, FACC, FSCAI (Electronically Signed) Final Date:10 April 2018 15:21
--- NOTE | 2018-04-10 17:22 | P.HPIM ---
History of Present Illness Service: Hospitalist Primary Care Physician: No Primary Care Physician Chief Complaint: Penile Discharge History of Present Illness: Patient is a 37-year-old male who presents to the emergency room for evaluation of penile discharge, gross hematuria and severe dysuria. He is also complaining of fever and chills and was diaphoretic and tachycardic. Per his report symptoms started about 24 hours before. He is sexually active and last had intercourse approximately 2 days ago. Has a secondary complaint of lower abdominal pain which is moderate. He describes the dysuria as burning, severe and constant. He does have a history of substance abuse including IV drug use however says he has not used IV drugs in over a year. Denies any trauma or injury to the urethra. Diagnosis (1) Urethritis: (2) N. gonorrhoeae: Review of Systems Review of Systems: all other systems reviewed are negative [facility] Medical History Medical History Patient denies medical problems (Acute) Surgical History Surgical History No history of previous surgery (Acute) Family History Family History Other Family history non-contributory Social History Social History Substance History: Active Abuse Smoking Status: Current every day smoker Tobacco Type: Cigarettes How Often Do You Have a Drink Containing Alcohol: Never Recent Travel in [facility] within the Last 8 Weeks: No Recent Out of Country Travel within the Last 8 Weeks: No Substance Abuse Detail Methamphetamine: Substance Use Status: Active Immunization History Tetanus Immunization: >5 Years Medications and Allergies Allergies Allergy/AdvReac Type Severity Reaction Status Date / Time No Known Allergies Allergy Verified 04/10/18 01:21 Home Medications Medication Instructions Recorded Confirmed Type No Known Home Medications 04/10/18 04/10/18 History Active Medications: Active Medications Acetaminophen (Tylenol) 650 mg PO Q4H PRN PRN Reason: headache/fever/pain1-4 Hydrocodone Bitart/Acetaminophen ([place] 5/325) 1 tab PO Q6H PRN PRN Reason: pain scale 5 to 10 Al Hydroxide/Mg Hydroxide (Milk Of Magnesia Liq) 30 ml PO Q12H PRN PRN Reason: Mild Constipation Bisacodyl (Dulcolax Supp) 10 mg RECTAL DAILY PRN PRN Reason: SEVERE CONSITIPATION Sodium Chloride (Ns Inj) 1,000 mls @ 0 mls/hr IV.SIG .Q0M [facility] Last Infusion: 04/10/18 03:20 Dose: Infused Sodium Chloride (Ns Inj) 800 mls @ 0 mls/hr IV.SIG .Q0M [facility] Last Infusion: 04/10/18 03:35 Dose: Infused Sodium Chloride (Ns Inj) 1,000 mls @ 100 mls/hr IV.CONT .Q10H [facility] Last Admin: 04/10/18 06:59 Dose: 100 mls/hr Lactulose (Lactulose Liq) 30 ml PO DAILY PRN PRN Reason: SEVERE CONSITIPATION Naloxone HCl (Narcan Inj) 0.4 mg IV.PUSH UNSCH PRN PRN Reason: SEE LABEL COMMENTS Ondansetron HCl (Zofran Inj) 4 mg IV.PUSH Q6H PRN PRN Reason: NAUSEA OR VOMITING Senna/Docusate Sodium (Pattie-Colace) 1 tab PO BID [facility] Last Admin: 04/10/18 14:39 Dose: Not Given Sennosides (Senokot) 17.2 mg PO Q12H PRN PRN Reason: Moderate Constipation Sodium Chloride (Ns Flush) 2 ml IV.FLUSH PRN PRN PRN Reason: FLUSH AFTER USING IV ACCESS Sodium Chloride (Ns Flush) 2 ml IV.FLUSH BID [facility] Last Admin: 04/10/18 14:39 Dose: Not Given Physical Exam Vital signs: Last Vital Signs Temp 98.9 F 04/10/18 12:00 Pulse 80 04/10/18 12:00 Resp 16 04/10/18 12:00 BP 137/74 04/10/18 12:00 Pulse Ox 100 04/10/18 04:47 Intake & Output 04/08/18 04/09/18 04/10/18 04/11/18 06:59 06:59 06:59 06:59 Intake Total 2900 / 2900 Balance 2900 / 2900 Weight 86.183 kg Narrative: GENERAL: Well-nourished, well-developed adult male in no obvious distress. SKIN: Warm and dry. HEAD: Atraumatic. Normocephalic. CARDIOVASCULAR: Regular rate and rhythm. RESPIRATORY: No accessory muscle use. Clear to auscultation. Breath sounds equal bilaterally. GASTROINTESTINAL: Abdomen soft, non-tender, non-distended. Positive bowel sounds. MUSCULOSKELETAL: Extremities without clubbing, cyanosis, or edema. No obvious deformities. NEUROLOGICAL: Drowsy but easily aroused. No obvious cranial nerve deficits. Motor grossly within normal limits. Normal speech. Results Labs CBC & Chem 7: 04/10/18 01:35 12 01:35 Imaging Impressions Abdomen/Pelvis CT 04/10/18 01:31 CONCLUSION: 1. Negative CT Abdomen and Pelvis with contrast. Chest X-Ray 04/10/18 01:31 CONCLUSION: Negative examination. Head CT 04/10/18 03:37 CONCLUSION: 1. Negative CT Head non contrast. . Caprini VTE Risk Assessment Caprini VTE Risk Assessment: No/Low Risk (score <= 1) VTE Pharmacological Exception Reason: Active bleeding Caprini Risk Assessment Model: Point Value = 1 Point Value = 2 Point Value = 3 Point Value = 5 Age 41-60 Minor surgery BMI > 25 kg/m2 Swollen legs Varicose veins or History of unexplained or recurrent spontaneous Oral contraceptives or hormone replacement Sepsis (< 1 month) Serious lung disease, including pneumonia (< 1 month) Abnormal pulmonary function Acute myocardial infarction Congestive heart failure (< 1 month) History of inflammatory bowel disease Medical patient at bed rest Age 61-74 Arthroscopic surgery Major open surgery (> 45 min) Laparoscopic surgery (> 45 min) Malignancy Confined to bed (> 72 hours) Immobilizing plaster cast Central venous access Age >= 75 History of VTE Family history of VTE Factor V Leiden Prothrombin [id number] Lupus anticoagulant Anticardiolipin antibodies Elevated serum homocysteine Heparin-induced thrombocytopenia Other congenital or acquired thrombophilia Stroke (< 1 month) Elective arthroplasty Hip, pelvis, or leg fracture Acute spinal cord injury (< 1 month) Prophylaxis Regimen: Total Risk Factor Score Risk Level Prophylaxis Regimen 0-1 Low Early ambulation 2 Moderate Order ONE of the following: *Sequential Compression Device (SCD) *Heparin 5000 units SQ BID 3-4 Higher Order ONE of the following medications: *Heparin 5000 units SQ TID *Enoxaparin/Lovenox 40 mg SQ daily (WT < 150 kg, CrCl > 30 mL/min) *Enoxaparin/Lovenox 30 mg SQ daily (WT < 150 kg, CrCl > 10-29 mL/min) *Enoxaparin/Lovenox 30 mg SQ BID (WT < 150 kg, CrCl > 30 mL/min) AND/OR *Sequential Compression Device (SCD) 5 or more Highest Order ONE of the following medications: *Heparin 5000 units SQ TID (Preferred with Epidurals) *Enoxaparin/Lovenox 40 mg SQ daily (WT < 150 kg, CrCl > 30 mL/min) *Enoxaparin/Lovenox 30 mg SQ daily (WT < 150 kg, CrCl > 10-29 mL/min) *Enoxaparin/Lovenox 30 mg SQ BID (WT < 150 kg, CrCl > 30 mL/min) AND *Sequential Compression Device (SCD) Assessment and Plan (1) Urethritis: Code(s): N34.2 - Other urethritis Status: Acute (2) N. gonorrhoeae: Code(s): A54.9 - Gonococcal infection, unspecified Status: Acute Patient is a 37-year-old male who presents to the emergency room for evaluation of penile discharge, gross hematuria and severe dysuria. He is also complaining of fever and chills and was diaphoretic and tachycardic. Acute urethritis -Consult to urology who recommends: Discharge home with pain medication, doxycycline and Cipro. They also recommend continuing Pyridium. Follow-up in 2-3 weeks time. N. gonorrhoeae -Received Rocephin and azithromycin in ED -Patient refused additional STD testing -Educated on the importance of testing for HIV and hepatitis C especially in light of elevated liver enzymes. Patient indicated understanding that untreated infection could lead to liver disease and/or . Fever and chills; 102 at admit -Resolved -Echo done due to history of IV drug use; no indication of endocarditis DVT prophylaxis: Patient is ambulate Discharge planning: Likely home
--- NOTE | 2018-04-10 17:31 | P.DS ---
DS: Providers Date of admission: 04/10/18 05:42 Primary care physician: No Primary Care Physician Consults: 04/10/18 05:47 Consult to Urology Routine Consulting Provider: Shane Arrington Reason for Consultation: persistent bleeding from urethral meatus with severe pain Notified:: Service Spoke with:: MARIA FERNANDA Date Notified:: 04/10/18 Time Notified:: 05:51 Ordering Provider: DIANNE Brief History from admission: Patient is a 37-year-old male who presents to the emergency room for evaluation of penile discharge, gross hematuria and severe dysuria. He is also complaining of fever and chills and was diaphoretic and tachycardic. Per his report symptoms started about 24 hours before. He is sexually active and last had intercourse approximately 2 days ago. Has a secondary complaint of lower abdominal pain which is moderate. He describes the dysuria as burning, severe and constant. He does have a history of substance abuse including IV drug use however says he has not used IV drugs in over a year. Denies any trauma or injury to the urethra. DS: Diagnosis Discharge Diagnosis (1) Urethritis: Status: Acute (2) N. gonorrhoeae: Status: Acute DS: Summary Patient is a 37-year-old male who presents to the emergency room for evaluation of penile discharge, gross hematuria and severe dysuria. He is also complaining of fever and chills and was diaphoretic and tachycardic. Labs positive for gonorrhea; received Rocephin and azithromycin in ED. He was additionally evaluated by urology who recommended continued antibiotic treatment as well as Pyridium with outpt follow up. Evaluated for endocarditis due to history of IV drug use and fevers-negative echo. Patient had elevated liver enzymes but refused additional testing including hepatitis panel. Education provided on the importance of evaluation for hep C as untreated virus could lead to liver failure and/or . Time Spent with Patient Total time spent providing and/or coordinating discharge services: <30 min Exam Narrative Exam Narrative: GENERAL: Well-nourished, well-developed adult male in no obvious distress. SKIN: Warm and dry. HEAD: Atraumatic. Normocephalic. CARDIOVASCULAR: Regular rate and rhythm. RESPIRATORY: No accessory muscle use. Clear to auscultation. Breath sounds equal bilaterally. GASTROINTESTINAL: Abdomen soft, non-tender, non-distended. Positive bowel sounds. MUSCULOSKELETAL: Extremities without clubbing, cyanosis, or edema. No obvious deformities. NEUROLOGICAL: Drowsy but easily aroused. No obvious cranial nerve deficits. Motor grossly within normal limits. Normal speech. Results Labs on day of discharge: Labs from last 24 hours 04/10/18 04/10/18 04/10/18 05:05 05:05 05:05 WBC RBC Hgb Hct MCV MCH MCHC RDW Plt Count MPV Neut % (Auto) Lymph % (Auto) [place] % (Auto) Eos % (Auto) Baso % (Auto) Neut # (Auto) Lymph # (Auto) [place] # (Auto) Eos # (Auto) Baso # (Auto) WBC Differential Differential Comment PT INR APTT Puncture Site Patient Temperature O2 Saturation ABG pH ABG pCO2 ABG pO2 ABG HCO3 ABG O2 Content ABG Base Excess ABG Methemoglobin Krish Test Hemoglobin Carboxyhemoglobin Inspired O2 Critical Value Sodium Potassium Chloride Carbon Dioxide Anion Gap BUN Creatinine Estimated GFR Random Glucose Osmolality Lactic Acid Calcium Magnesium Total Bilirubin AST ALT Alkaline Phosphatase Ammonia Total Creatine Kinase CK-MB (CK-2) Total Protein Albumin Lipase TSH Free T4 Urine Color Red Urine Clarity Hazy H Urine pH 5.0 Ur Specific [place] Greater than 1.060 H Urine Protein 100 H Urine Glucose (UA) Negative Urine Ketones Trace H Urine Occult Blood Large H Urine Nitrate Negative Urine Bilirubin Negative Urine Urobilinogen Less than 2 Ur Leukocyte Esterase Small H Urine RBC Urine WBC 35 H Urine Mucus Few H Micro UA Comment Culture indicated Ur Microscopic Review Not Reportable Urine Culture Comments Culture indicated Urine Opiates Screen Neg Ur Barbiturates Screen Neg Ur Amphetamines Screen Pos H U Benzodiazepines Scrn Neg Urine Cocaine Screen Neg U Cannabinoids Screen Pos H Serum Alcohol Chlam trachomat DNA PCR Not detected N.gonorrhoeae DNA (PCR) Detected A 04/10/18 04/10/18 04/10/18 04:26 02:46 01:35 WBC RBC Hgb Hct MCV MCH MCHC RDW Plt Count MPV Neut % (Auto) Lymph % (Auto) [place] % (Auto) Eos % (Auto) Baso % (Auto) Neut # (Auto) Lymph # (Auto) [place] # (Auto) Eos # (Auto) Baso # (Auto) WBC Differential Differential Comment PT INR APTT Puncture Site Right radial Patient Temperature 98.6 O2 Saturation 95 ABG pH 7.38 ABG pCO2 42 ABG pO2 86 ABG HCO3 24 ABG O2 Content 16.5 ABG Base Excess -0.6 ABG Methemoglobin 0.6 Krish Test Present Hemoglobin 12.4 Carboxyhemoglobin 1.2 Inspired O2 21 Critical Value No Sodium Potassium Chloride Carbon Dioxide Anion Gap BUN Creatinine Estimated GFR Random Glucose Osmolality 290 Lactic Acid Calcium Magnesium Total Bilirubin AST ALT Alkaline Phosphatase Ammonia 30 Total Creatine Kinase CK-MB (CK-2) Total Protein Albumin Lipase TSH Free T4 Urine Color Urine Clarity Urine pH Ur Specific [place] Urine Protein Urine Glucose (UA) Urine Ketones Urine Occult Blood Urine Nitrate Urine Bilirubin Urine Urobilinogen Ur Leukocyte Esterase Urine RBC Urine WBC Urine Mucus Micro UA Comment Ur Microscopic Review Urine Culture Comments Urine Opiates Screen Ur Barbiturates Screen Ur Amphetamines Screen U Benzodiazepines Scrn Urine Cocaine Screen U Cannabinoids Screen Serum Alcohol Chlam trachomat DNA PCR N.gonorrhoeae DNA (PCR) 04/10/18 04/10/18 04/10/18 01:35 01:35 01:35 WBC RBC Hgb Hct MCV MCH MCHC RDW Plt Count MPV Neut % (Auto) Lymph % (Auto) [place] % (Auto) Eos % (Auto) Baso % (Auto) Neut # (Auto) Lymph # (Auto) [place] # (Auto) Eos # (Auto) Baso # (Auto) WBC Differential Differential Comment PT INR APTT Puncture Site Patient Temperature O2 Saturation ABG pH ABG pCO2 ABG pO2 ABG HCO3 ABG O2 Content ABG Base Excess ABG Methemoglobin Krish Test Hemoglobin Carboxyhemoglobin Inspired O2 Critical Value Sodium 137 Potassium 4.3 Chloride 102 Carbon Dioxide 28.5 Anion Gap 7 BUN 18 Creatinine 1.28 Estimated GFR 64 L Random Glucose 99 Osmolality Lactic Acid 0.9 Calcium 8.4 L Magnesium 2.0 Total Bilirubin 0.5 AST 38 H ALT 126 H Alkaline Phosphatase 70 Ammonia Total Creatine Kinase 217 CK-MB (CK-2) Less than 1.0 Total Protein 8.0 Albumin 3.7 Lipase 121 TSH 0.098 L Free T4 1.18 Urine Color Urine Clarity Urine pH Ur Specific [place] Urine Protein Urine Glucose (UA) Urine Ketones Urine Occult Blood Urine Nitrate Urine Bilirubin Urine Urobilinogen Ur Leukocyte Esterase Urine RBC Urine WBC Urine Mucus Micro UA Comment Ur Microscopic Review Urine Culture Comments Urine Opiates Screen Ur Barbiturates Screen Ur Amphetamines Screen U Benzodiazepines Scrn Urine Cocaine Screen U Cannabinoids Screen Serum Alcohol Less than 3 Chlam trachomat DNA PCR N.gonorrhoeae DNA (PCR) 04/10/18 04/10/18 01:35 01:35 WBC 10.8 RBC 5.27 Hgb 14.5 Hct 44.3 MCV 84.2 MCH 27.5 MCHC 32.6 RDW 13.4 Plt Count 203 MPV 8.4 Neut % (Auto) 71.5 H Lymph % (Auto) 16.8 [place] % (Auto) 10.8 H Eos % (Auto) 0.3 Baso % (Auto) 0.6 Neut # (Auto) 7.7 Lymph # (Auto) 1.8 [place] # (Auto) 1.2 H Eos # (Auto) 0.0 Baso # (Auto) 0.1 WBC Differential . Differential Comment Auto diff final PT 10.7 INR 1.1 APTT 29.6 Puncture Site Patient Temperature O2 Saturation ABG pH ABG pCO2 ABG pO2 ABG HCO3 ABG O2 Content ABG Base Excess ABG Methemoglobin Krish Test Hemoglobin Carboxyhemoglobin Inspired O2 Critical Value Sodium Potassium Chloride Carbon Dioxide Anion Gap BUN Creatinine Estimated GFR Random Glucose Osmolality Lactic Acid Calcium Magnesium Total Bilirubin AST ALT Alkaline Phosphatase Ammonia Total Creatine Kinase CK-MB (CK-2) Total Protein Albumin Lipase TSH Free T4 Urine Color Urine Clarity Urine pH Ur Specific [place] Urine Protein Urine Glucose (UA) Urine Ketones Urine Occult Blood Urine Nitrate Urine Bilirubin Urine Urobilinogen Ur Leukocyte Esterase Urine RBC Urine WBC Urine Mucus Micro UA Comment Ur Microscopic Review Urine Culture Comments Urine Opiates Screen Ur Barbiturates Screen Ur Amphetamines Screen U Benzodiazepines Scrn Urine Cocaine Screen U Cannabinoids Screen Serum Alcohol Chlam trachomat DNA PCR N.gonorrhoeae DNA (PCR) Impressions ITS Impressions Abdomen/Pelvis CT 04/10/18 01:31 CONCLUSION: 1. Negative CT Abdomen and Pelvis with contrast. Chest X-Ray 04/10/18 01:31 CONCLUSION: Negative examination. Head CT 04/10/18 03:37 CONCLUSION: 1. Negative CT Head non contrast. . Discharge Plan Discharge Disposition Patient Disposition: 01 Discharge Home Discharge Condition Condition: Stable Discharge Order Discharge Orders: Discharge Order (Routine); Ordered 04/10/18 Ordered By: Audra Jennnigs ED Use Only Admit Order (Routine); Ordered 04/10/18 Ordered By: Kane Muir Discharge Details Diagnosis: Altered mental status, Urethritis, Gross hematuria, Polysubstance abuse Physicians Team ED Provider: Kane Muir Primary Care Provider: Primary Care Indigo Richardson Attending Provider: Jeremías Fierro Other Providers: Shane Arrington Rxs /Orders / Referrals /Forms Prescriptions: New ciprofloxacin HCl [Cipro] 250 mg tablet 500 mg PO BID Qty: 10 RF: 0 doxycycline hyclate 100 mg capsule 100 mg PO BID 7 Days Qty: 14 RF: 0 phenazopyridine [Pyridium] 200 mg tablet 200 mg PO Q8H PRN (Reason: pain) 3 Days RF: 0 No Action No Known Home Medications RF: 0 [facility] - See Instructions Shane Arrington MD [UROLOGY] - See Instructions Status ED Status: Left Department
--- NOTE | 2018-04-10 17:35 | ECG ---
Date Performed: 04/10/2018 Time Performed: 01:53:28 PTAGE: 37 years EKG: Sinus rhythm WITH SINUS ARRHYTHMIA NORMAL ECG PREVIOUS TRACING : 01/11/2017 08.35 Since the previous tracing, no significant change noted DOCTOR: Devi Lane Interpretating Date/Time 04/10/2018 17:33:33
== END 2018-04-10 18:33 | disposition home or self-care (01) ==
LOC: NEPE 01:15 → NEDA 01:15 → NEPHCDU 08:04
PROVIDERS: ADMIT Hospitalist; ATTEND Hospitalist